=== PATIENT | male | born 1950 | race Caucasian/White ===

== ENCOUNTER 2019-05-31 18:31 | Emergency (ER) | payer BC, MEDICARE ==
[~2019-05-31] VITALS: Ht 175.3 cm; Wt 104.3 kg
[2019-05-31] MEDS ORDERED: BUSP10 PO (18:53)
[2019-05-31] MEDS ORDERED: CLON.5 PO (18:54)
== END 2019-05-31 20:00 | disposition home or self-care (01) ==
LOC: ER 18:31
DX: R07.89 Other chest pain (principal)
CPT/HCPCS: 71046; 84484; 93005; 93010; 99284-25

== ENCOUNTER → 2019-05-31 | Outpatient (CLI) | payer BC ==
[~2019-05-31] MED LIST: ASPI81CH PO; BUSP10 PO; CLON.5 PO; FISH1000 PO; KONSYL PO; LISI20 PO; LISI5 PO; METF500C PO; OMEP20ER PO; PRIM250 PO; PRIM50 PO; SERT100 PO; SIMV10 PO; TAMS.4ER PO
[2019-05-31 14:12] LABS: BASOPHILS ABSOLUTE AUTO 0.04 K/mm3 (0.00-0.23); BASOPHILS PERCENT AUTO 1 % (0-2); EOSINOPHILS ABSOLUTE AUTO 0.13 K/mm3 (0.00-0.68); EOSINOPHILS PERCENT AUTO 3 % (0-6); Hematocrit 34.2 % (37.0-53.0); Hemoglobin 12.2 g/dL (13.5-17.5); IMMATURE GRAN ABSOLUTE AUTO 0.01 K/mm3 (0.00-0.10); IMMATURE GRAN PERCENT AUTO 0 % (0-1); LYMPHOCYTES ABSOLUTE AUTO 0.14 K/mm3 (0.84-5.20); LYMPHOCYTES PERCENT AUTO 3 % (21-46); MONOCYTES ABSOLUTE AUTO 0.44 K/mm3 (0.16-1.47); MONOCYTES PERCENT AUTO 8 % (4-13); Mean Corpuscular HGB 33.6 pg (26.0-34.0); Mean Corpuscular HGB Conc 35.7 g/dL (31.5-36.5); Mean Corpuscular Volume 94 fL (80-100); Mean Platelet Volume 10.6 fL (9.1-12.4); NEUTROPHILS ABSOLUTE AUTO 4.54 K/mm3 (1.96-9.15); NEUTROPHILS PERCENT AUTO 86 % (41-73); Platelet Count 110 K/mm3 (150-400); RDW Coefficient Variation 12.2 % (11.7-14.2); Red Blood Cell Count 3.63 M/mm3 (4.30-5.90)
[2019-05-31 14:21] LABS: Alanine Aminotransfer (ALT/SGP 22 U/L (12-78); Albumin, Blood 3.5 g/dL (3.4-5.0); Albumin/Globulin Ratio 1.1 (0.8-1.8); Alk Phos 102 U/L (50-136); Anion Gap 6 mmol/L (6-16); Aspartate Aminotrans (AST/SGOT 21 U/L (12-37); Bilirubin, Total 0.5 mg/dL (0.1-1.0); Blood Urea Nitrogen 14 mg/dL (8-24); Bun/Creatinine Ratio 11.6 (12.0-20.0); CO2, Blood 26 mmol/L (21-32); Calcium, Blood 8.3 mg/dL (8.5-10.1); Chloride, Blood 111 mmol/L (98-108); Creatinine, Blood 1.21 mg/dL (0.60-1.20); Globulin, Blood 3.3 g/dL (2.2-4.0); Glomerular Filtration Rate >60 (60-); Glucose, Blood 97 mg/dL (70-99); Lactate Dehydrogenase (Ld),Bld 172 U/L (100-240); Potassium, Blood 3.7 mmol/L (3.5-5.5); Sodium, Blood 143 mmol/L (136-145); Total Protein, Blood 6.8 g/dL (6.4-8.2)
[2019-06-04 15:07] LABS: A/G RATIO 1.4 (0.7-1.7); ALBUMIN 3.6 g/dL (2.9-4.4); ALPHA-1-GLOBULIN 0.1 g/dL (0.0-0.4); ALPHA-2-GLOBULIN 0.5 g/dL (0.4-1.0); BETA GLOBULIN 0.9 g/dL (0.7-1.3); GAMMA GLOBULIN 1.2 g/dL (0.4-1.8); GLOBULIN, TOTAL 2.6 g/dL (2.2-3.9); IMMUNOGLOBULIN A, QN, SERUM 147 mg/dL (61-437); IMMUNOGLOBULIN G, QN, SERUM 674 mg/dL (700-1600); IMMUNOGLOBULIN M, QN, SERUM 734 mg/dL (20-172); M-SPIKE 0.8 g/dL (Not Observed); PROTEIN, TOTAL, SERUM 6.2 g/dL (6.0-8.5)
== END | disposition home or self-care (01) ==
LOC: LAB SHORT 13:27 → LAB 13:27
PROVIDERS: Internal Medicine Hematology & Oncology
DX: C88.0 Waldenstrom macroglobulinemia (principal)
CPT/HCPCS: 80053; 82784; 83615; 84165; 85025; 85810; 86334

== ENCOUNTER → 2019-07-05 | Outpatient (CLI) | payer BC ==
[2019-07-05 10:04] LABS: Source, Urine Clean Catch
[2019-07-05 11:19] LABS: Bilirubin, Urine Neg (Neg); Blood, Urine Neg (Neg); Glucose Qualitative, Urine Neg (Neg); Ketones, Urine Neg (Neg); Leukocyte Esterase, Urine Neg (Neg); Nitrite, Urine Neg (Neg); Protein, Urine 1+ (Neg); Urobilinogen, Urine NORM (Normal)
[2019-07-05 11:33] LABS: Appearance, Urine Clear (Clear); Color, Urine Yellow (P-Yellow)
== END | disposition home or self-care (01) ==
LOC: LAB 10:03 → LAB SHORT 10:03
PROVIDERS: Internal Medicine Hematology & Oncology
DX: C88.0 Waldenstrom macroglobulinemia (principal)
CPT/HCPCS: 81003

== ENCOUNTER 2022-02-24 16:07 | Emergency (ER) | payer BC ==
[~2022-02-24] VITALS: Ht 175.3 cm; Wt 91.6 kg
== END 2022-02-24 18:00 | disposition home or self-care (01) ==
LOC: ER 16:07
DX: R60.0 Localized edema (principal); C85.90 Non-Hodgkin lymphoma, unspecified, unspecified site; Z79.899 Other long term (current) drug therapy
CPT/HCPCS: 93970; 99284-25

== ENCOUNTER 2022-07-25 17:22 | Emergency (ER) | payer BC ==
[~2022-07-25] VITALS: Ht 175.3 cm; Wt 88.0 kg
[~2022-07-25 17:22] MED LIST changes: +IBUP600 PO; +LIDO700A20 TOP
[2022-07-25] MEDS ORDERED: Percocet 5-3251 EACH PO (18:31)
== END 2022-07-25 18:33 | disposition home or self-care (01) ==
LOC: ER 17:22
DX: B02.9 Zoster without complications (principal); E11.9 Type 2 diabetes mellitus without complications; Z79.899 Other long term (current) drug therapy
CPT/HCPCS: 99282

== ENCOUNTER 2023-10-19 01:06 | Emergency (ER) | payer BC ==
[~2023-10-19] VITALS: Ht 177.8 cm; Wt 86.2 kg
[~2023-10-19 01:06] MED LIST changes: +Percocet 5-3251 EACH PO
[2023-10-19 03:26] LABS: BASOPHILS ABSOLUTE AUTO 0.02 K/mm3 (0.00-0.23); BASOPHILS PERCENT AUTO 1 % (0-2); EOSINOPHILS ABSOLUTE AUTO 0.01 K/mm3 (0.00-0.68); EOSINOPHILS PERCENT AUTO 0 % (0-6); Hematocrit 41.5 % (37.0-53.0); Hemoglobin 14.9 g/dL (13.5-17.5); IMMATURE GRAN PERCENT AUTO 0 % (0-1); LYMPHOCYTES ABSOLUTE AUTO 0.19 K/mm3 (0.84-5.20); LYMPHOCYTES PERCENT AUTO 5 % (21-46); MONOCYTES ABSOLUTE AUTO 0.55 K/mm3 (0.16-1.47); MONOCYTES PERCENT AUTO 15 % (4-13); Mean Corpuscular HGB 34.7 pg (26.0-34.0); Mean Corpuscular HGB Conc 35.9 g/dL (31.5-36.5); Mean Corpuscular Volume 97 fL (80-100); Mean Platelet Volume 12.4 fL (9.1-12.4); NEUTROPHILS ABSOLUTE AUTO 2.81 K/mm3 (1.96-9.15); NEUTROPHILS PERCENT AUTO 78 % (41-73); Platelet Count 84 K/mm3 (150-400); RDW Coefficient Variation 12.7 % (11.7-14.2); RDW Standard Deviation 44.1 fL (35.1-46.3); Red Blood Cell Count 4.29 M/mm3 (4.30-5.90); White Blood Cell Count 3.58 K/mm3 (4.00-11.30)
[2023-10-19 03:41] LABS: D-Dimer, Quantitative 0.38 mg/L FEU (0.00-0.52); Prothrombin Time Results 10.5 Sec (9.7-11.5)
[2023-10-19 04:02] LABS: Source, Urine Voided
[2023-10-19 04:04] LABS: Albumin, Blood 3.6 g/dL (3.4-5.0); Albumin/Globulin Ratio 1.3 (0.8-1.8); Bilirubin, Total 0.6 mg/dL (0.1-1.0); Bun/Creatinine Ratio 11.4 (12.0-20.0); Calcium, Blood 8.2 mg/dL (8.5-10.1); Creatinine, Blood 1.14 mg/dL (0.60-1.20); Globulin, Blood 2.7 g/dL (2.2-4.0); Magnesium, Blood 1.9 mg/dL (1.6-2.4); Phosphorus, Blood 1.9 mg/dL (2.5-4.9); Potassium, Blood 3.3 mmol/L (3.5-5.5); Thyroid Stimulating Hormone 1.21 uIU/mL (0.360-4.800); Total Protein, Blood 6.3 g/dL (6.4-8.2)
[2023-10-19 04:07] LABS: Bilirubin, Urine Neg (Neg); Blood, Urine 4+ (Neg); Glucose Qualitative, Urine Neg (Neg); Ketones, Urine Neg (Neg); Leukocyte Esterase, Urine 1+ (Neg); Nitrite, Urine Neg (Neg); Protein, Urine 1+ (Neg); Urobilinogen, Urine NORM (Normal)
[2023-10-19 04:30] VITALS: BP 132/82
[2023-10-19 04:43] LABS: U Amphetamine Screen Not Detected; U Barbituate Screen DETECTED; U Benzodiazapine Screen Not Detected; U Buprenorphine Screen Not Detected; U Cannabinoids Screen Not Detected; U Cocaine Screen Not Detected; U Methadone Screen Not Detected; U Methamphetamine Screen Not Detected; U Opiates Screen Not Detected; U Oxycodone Screen Not Detected; U Phencyclidine Screen Not Detected
[2023-10-19 05:03] LABS: Appearance, Urine Hazy (Clear); Color, Urine Pale Yellow (P-Yellow)
[2023-10-19 05:05] LABS: Bacteria Mod /hpf; Red Blood Cells, Urine 50-100 /hpf (0-2); Squamous Epithelial Cells Not Seen /hpf (Few)
[2023-10-19] MEDS ORDERED: CEPH500 PO (06:02)
[2023-10-19] MEDS ORDERED: GABA300 PO (17:54)
[2023-10-19] MEDS ORDERED: ATOR40TA PO (17:56)
[2023-10-19] MEDS ORDERED: IMBRUVICA420 MG PO (18:56)
[2023-10-19] MEDS ORDERED: LATA.005SO BOTHEYES (18:57)
== END 2023-10-19 06:34 | disposition home or self-care (01) ==
LOC: ER 01:06
PROVIDERS: Emergency Medicine
DX: N39.0 Urinary tract infection, site not specified (principal); E83.39 Other disorders of phosphorus metabolism; E11.9 Type 2 diabetes mellitus without complications; G47.30 Sleep apnea, unspecified; Z79.899 Other long term (current) drug therapy; W18.30XA Fall on same level, unspecified, initial encounter
CPT/HCPCS: 71046; 80053; 81001; 83605; 83735; 84100; 84443; 84484; 85025; 85379; 85610; 85730; 87086; 87147; 93005; 93010; 96374; 99284-25; A9270; J0696; P9612

== ENCOUNTER 2023-10-19 14:15 | Observation (INO) | payer MEDICARE, BC ==
[~2023-10-19] VITALS: Ht 177.8 cm; Wt 82.9 kg
[~2023-10-19 14:15] MED LIST changes: +CEPH500 PO
[2023-10-19] MEDS ORDERED: GABA300 PO (17:54)
[2023-10-19] MEDS ORDERED: ATOR40TA PO (17:56)
[2023-10-19 18:21] VITALS: BP 102/89
[2023-10-19] MEDS ORDERED: IMBRUVICA420 MG PO (18:56)
[2023-10-19] MEDS ORDERED: LATA.005SO BOTHEYES (18:57)
[2023-10-19 21:01] VITALS: BP 145/92
[2023-10-20 02:51] VITALS: BP 160/91
[2023-10-20 05:12] LABS: BASOPHILS ABSOLUTE AUTO 0.01 K/mm3 (0.00-0.23); BASOPHILS PERCENT AUTO 0 % (0-2); EOSINOPHILS PERCENT AUTO 0 % (0-6); Hematocrit 41.5 % (37.0-53.0); Hemoglobin 14.9 g/dL (13.5-17.5); IMMATURE GRAN ABSOLUTE AUTO 0.01 K/mm3 (0.00-0.10); IMMATURE GRAN PERCENT AUTO 0 % (0-1); LYMPHOCYTES PERCENT AUTO 6 % (21-46); MONOCYTES ABSOLUTE AUTO 0.54 K/mm3 (0.16-1.47); MONOCYTES PERCENT AUTO 15 % (4-13); Mean Corpuscular HGB 34.4 pg (26.0-34.0); Mean Corpuscular HGB Conc 35.9 g/dL (31.5-36.5); Mean Corpuscular Volume 96 fL (80-100); Mean Platelet Volume 11.7 fL (9.1-12.4); NEUTROPHILS ABSOLUTE AUTO 2.88 K/mm3 (1.96-9.15); NEUTROPHILS PERCENT AUTO 79 % (41-73); Platelet Count 76 K/mm3 (150-400); RDW Coefficient Variation 12.6 % (11.7-14.2); RDW Standard Deviation 44.2 fL (35.1-46.3); Red Blood Cell Count 4.33 M/mm3 (4.30-5.90); White Blood Cell Count 3.64 K/mm3 (4.00-11.30)
[2023-10-20 05:31] LABS: Albumin, Blood 3.3 g/dL (3.4-5.0); Albumin/Globulin Ratio 1.1 (0.8-1.8); Bilirubin, Total 0.6 mg/dL (0.1-1.0); Bun/Creatinine Ratio 15.5 (12.0-20.0); Calcium, Blood 8.6 mg/dL (8.5-10.1); Creatinine, Blood 0.97 mg/dL (0.60-1.20); Globulin, Blood 2.9 g/dL (2.2-4.0); Magnesium, Blood 1.9 mg/dL (1.6-2.4); Phosphorus, Blood 2.6 mg/dL (2.5-4.9); Total Protein, Blood 6.2 g/dL (6.4-8.2)
--- NOTE | 2023-10-20 07:34 | NUR ---
SHIFT SUMMARY: DON IS A&OX2-3. VSS, NO ACUTE EVENTS OVERNIGHT, MAINTAINING SATS ORA. ATTENDS IN PLACE, PT ABLE TO USE THE URINAL AT TIMES, IMPULSIVE, ONE-PERSON ASSIST TO THE BSC. IV TO L AC PATENT. TOLERATING PO INTAKE WELL. PT DID HAVE MULTIPLE BOWEL MOVEMENTS OVERNIGHT, DIARRHEA NOTED. PT COUGHING UP PINK TINGED SPUTUM, CALLED HOSPITALIST AND OBTAINED ORDER FOR SPUTUM CULTURE. HE IS LYING IN BED WITH THE CALL LIGHT IN REACH. REPORT WAS GIVEN TO PHOTOGRAPH EDITOR RN.
[2023-10-20 08:53] VITALS: BP 138/101
[2023-10-20 14:41] LABS: Albumin, Blood 3.3 g/dL (3.4-5.0); Anion Gap 4 mmol/L (6-16); Blood Urea Nitrogen 17 mg/dL (8-24); Bun/Creatinine Ratio 15.5 (12.0-20.0); CO2, Blood 29 mmol/L (21-32); Calcium, Blood 8.3 mg/dL (8.5-10.1); Chloride, Blood 108 mmol/L (98-108); Glomerular Filtration Rate 72 (60-); Glucose, Blood 176 mg/dL (70-99); Phosphorus, Blood 2.2 mg/dL (2.5-4.9); Potassium, Blood 3.5 mmol/L (3.5-5.5); Sodium, Blood 141 mmol/L (136-145)
--- NOTE | 2023-10-20 16:20 | NUR ---
SHIFT SUMMARY PATIENT IS ALERT AND ORIENTED X2. [facility] BY STAFF. PATIENT HAS BEEN SETTING OFF BED ALARM FREQUENTLY. PATIENT HAS HAD POTASSIUM AND MAGNESIUM INFUSED ORDERED. PATIENT HAS HAD NO OTHER ACUTE EVENTS THIS SHIFT. VITAL SIGNS REVIEWED. PATIENT HAS REPORTED NO SOB, PAIN, NAUSEA, OR VOMITTING THIS SHIFT. BED IN LOCKED AND LOWEST POSITION. CALL LIGHT IN PLACE. REPORT GIVEN TO ARIEL GERMAN.
[2023-10-20 16:50] VITALS: BP 175/98
[2023-10-20 17:14] VITALS: BP 151/96
[2023-10-20 20:00] VITALS: BP 147/90
[2023-10-20 20:38] LABS: Hematocrit 44.4 % (37.0-53.0); Hemoglobin 15.3 g/dL (13.5-17.5); Mean Corpuscular HGB 34.2 pg (26.0-34.0); Mean Corpuscular HGB Conc 34.5 g/dL (31.5-36.5); Mean Corpuscular Volume 99 fL (80-100); Platelet Count 86 K/mm3 (150-400); RDW Coefficient Variation 12.9 % (11.7-14.2); RDW Standard Deviation 47.1 fL (35.1-46.3); Red Blood Cell Count 4.47 M/mm3 (4.30-5.90)
[2023-10-20 21:37] LABS: BAND PERCENT MAN 9 % (0-8); BASOPHILS PERCENT MAN 0 % (0-2); EOSINOPHILS ABSOLUTE MAN 0.03 K/mm3 (0.00-0.68); EOSINOPHILS PERCENT MAN 1 % (0-6); LYMPHOCYTES ABSOLUTE MAN 0.33 K/mm3 (0.84-5.20); LYMPHOCYTES PERCENT MAN 9 % (21-46); MONOCYTES ABSOLUTE MAN 0.33 K/mm3 (0.16-1.47); MONOCYTES PERCENT MAN 9 % (4-13); NEUTROPHILS ABSOLUTE MAN 2.99 K/mm3 (1.96-9.15); SEG NEUTROPHILS PERCENT MAN 72 % (41-73); TOTAL CELLS COUNTED 100
--- NOTE | 2023-10-21 04:06 | NUR ---
SHIFT SUMMARY PT ALERT, ORIENTED TO SELF AND PERSON. CONFUSED AND IMPULSIVE AT TIMES WHEN NEEDING TO USE THE BATHROOM. 1P ASSIST WITH FWW & GB WHEN AMBULATING TO RESTROOM. POST VOID BLADDER SCAN 152 ML. PT STATES AT TIMES HE EXPERIENCES BURNING WITH URINATION. CURRENTLY RECEIVING ABX FOR UTI. TELEMETRY: SR, BBB @ 85. BED ALARM IN PLACE. BED KEPT IN LOWEST POSITION WITH CALL LIGHT WITHIN REACH. WILL CONTINUE TO MONITOR.
[2023-10-21 04:20] VITALS: BP 144/98
--- NOTE | 2023-10-21 06:24 | NUR ---
PT IMPULSIVE AND QUICK TO GET OUT OF BED. REORIENTED BUT FORGETS WITHIN A FEW MINUTES. PT HAS BEEN PULLING AT IV AND HAS GOTTEN OOB NUMEROUS TIMES THIS AM. PT KEEPS PULLING OFF HIS TELE. TELE HAS CALLED TO REPORT THE PT COMPLETLY OFF TELE 3 TIMES. WILL NOTIFY
[2023-10-21 06:54] LABS: Albumin, Blood 3.5 g/dL (3.4-5.0); Anion Gap 7 mmol/L (6-16); Blood Urea Nitrogen 16 mg/dL (8-24); Bun/Creatinine Ratio 15.2 (12.0-20.0); CO2, Blood 24 mmol/L (21-32); Calcium, Blood 8.6 mg/dL (8.5-10.1); Chloride, Blood 110 mmol/L (98-108); Creatinine, Blood 1.05 mg/dL (0.60-1.20); Glomerular Filtration Rate 76 (60-); Glucose, Blood 122 mg/dL (70-99); Magnesium, Blood 2.1 mg/dL (1.6-2.4); Phosphorus, Blood 2.9 mg/dL (2.5-4.9); Potassium, Blood 3.5 mmol/L (3.5-5.5); Sodium, Blood 141 mmol/L (136-145)
[2023-10-21 07:39] VITALS: BP 147/95
[2023-10-21] MEDS ORDERED: AMOX875 PO (14:33)
--- NOTE | 2023-10-21 15:00 | NUR ---
DISCHARGE NOTE MR SALES HAS BEEN CONFUSED AND IMPULSIVE TODAY. WEARING DENICE RESTRAINT. WHEN IT WAS REMOVED TO AMBULATE HIM IN THE HALLS WITH PT HE WOULD QUICKLY LEAN OVER TO THE FLOOR AND FORGET TO STAND UPRIGHT. HE PULLED AT RESTRAINTS, REMOVED TELEMETRY (UNTIL IT WAS DISCONTINUED) AND WOULD FORGET TO USE CALL LIGHT OR ASK FOR HELP BEFORE TRYING TO GET UP OUT OF BED OR CHAIR. BED AND CHAIR ALARMS USED. RESTRAINTS REMOVED AT 1445 PRIOR TO DISCHARGE WITH AND GRANDDAUGHTER. HIS HAS GLAUCOMA AND DOES NOT READ. PT AND FAMILY VERBALISED UNDERSTANDING OF WRITTEN AND VERBAL DISCHARGE INSTRUCTIONS. DISCHARGED AT 1505 VIA WHEELCHAIR. PIV REMOVED BY BICYCLE REPAIRER PRIOR TO DC.
== END 2023-10-21 15:03 | disposition home health service (06) ==
LOC: ER 14:15 → MEDS 14:16
PROVIDERS: ADMIT Family Medicine
DX: N39.0 Urinary tract infection, site not specified (principal); I10 Essential (primary) hypertension; N40.0 Benign prostatic hyperplasia without lower urinary tract symptoms; E11.9 Type 2 diabetes mellitus without complications; G25.81 Restless legs syndrome; G47.33 Obstructive sleep apnea (adult) (pediatric); K21.9 Gastro-esophageal reflux disease without esophagitis; W18.30XA Fall on same level, unspecified, initial encounter; F32.9 Major depressive disorder, single episode, unspecified; G25.0 Essential tremor; E87.6 Hypokalemia; C88.0 Waldenstrom macroglobulinemia; Z79.899 Other long term (current) drug therapy; Z99.89 Dependence on other enabling machines and devices
CPT/HCPCS: 36415; 70450; 80053; 80069; 83735; 84100; 85025; 87070; 87205; 92610; 96365; 96366; 96367; 96372; 96376; 97110; 97116; 97162; 97165; 97530; 97535; 99285-25; A9270; G0378; J0696; J1650; J3475; J3480; J7040; J7050

== ENCOUNTER 2023-11-02 17:28 | Inpatient (IN) | payer MEDICARE, BC ==
[~2023-11-02] VITALS: Ht 177.8 cm; Wt 77.2 kg
[~2023-11-02 17:28] MED LIST changes: +AMOX875 PO; +ATOR40TA PO; +GABA300 PO; +IMBRUVICA420 MG PO; +LATA.005SO BOTHEYES
[2023-11-02 18:26] LABS: BASOPHILS ABSOLUTE AUTO 0.02 K/mm3 (0.00-0.23); BASOPHILS PERCENT AUTO 1 % (0-2); EOSINOPHILS PERCENT AUTO 0 % (0-6); Hematocrit 44.3 % (37.0-53.0); Hemoglobin 16.4 g/dL (13.5-17.5); IMMATURE GRAN PERCENT AUTO 0 % (0-1); LYMPHOCYTES ABSOLUTE AUTO 0.41 K/mm3 (0.84-5.20); LYMPHOCYTES PERCENT AUTO 11 % (21-46); MONOCYTES PERCENT AUTO 10 % (4-13); Mean Corpuscular HGB 33.3 pg (26.0-34.0); Mean Corpuscular Volume 90 fL (80-100); Mean Platelet Volume 11.6 fL (9.1-12.4); NEUTROPHILS PERCENT AUTO 78 % (41-73); Platelet Count 140 K/mm3 (150-400); RDW Standard Deviation 39.5 fL (35.1-46.3); Red Blood Cell Count 4.92 M/mm3 (4.30-5.90); White Blood Cell Count 3.83 K/mm3 (4.00-11.30)
[2023-11-02 18:41] LABS: Base Excess Venous -1.7 mmol/L; Bicarbonate Venous 24.6 mmol/L (24.0-30.0); PCO2 Venous 26.1 mmHg (38-42); pH Blood Venous 7.52 (7.34-7.37)
[2023-11-02 19:05] LABS: Influenza A, PCR NEGATIVE (NEGATIVE); Influenza B, PCR NEGATIVE (NEGATIVE); Resp Syncytial Virus, PCR NEGATIVE (NEGATIVE)
[2023-11-02 19:06] LABS: SARS-Cov-2 (COVID-19) PCR, MMC POSITIVE (NEGATIVE)
[2023-11-02 19:07] LABS: Magnesium, Blood 1.9 mg/dL (1.6-2.4)
[2023-11-02 19:10] LABS: Thyroid Stimulating Hormone 1.18 uIU/mL (0.360-4.800)
[2023-11-02 19:16] LABS: Albumin, Blood 3.2 g/dL (3.4-5.0); Bilirubin, Total 1.1 mg/dL (0.1-1.0); Bun/Creatinine Ratio 20.5 (12.0-20.0); Calcium, Blood 8.5 mg/dL (8.5-10.1); Creatinine, Blood 0.88 mg/dL (0.60-1.20); Globulin, Blood 3.2 g/dL (2.2-4.0); Potassium, Blood 2.6 mmol/L (3.5-5.5); Total Protein, Blood 6.4 g/dL (6.4-8.2)
[2023-11-02 19:28] LABS: Source, Urine Straight Cath
[2023-11-02 19:34] LABS: Appearance, Urine Clear (Clear); Bilirubin, Urine Neg (Neg); Blood, Urine 2+ (Neg); Color, Urine Yellow (P-Yellow); Glucose Qualitative, Urine Neg (Neg); Ketones, Urine 3+ (Neg); Leukocyte Esterase, Urine Neg (Neg); Nitrite, Urine Neg (Neg); Protein, Urine 2+ (Neg); Specific Gravity, Urine 1.015 (1.003-1.022); Urobilinogen, Urine NORM (Normal)
[2023-11-02 19:41] LABS: Bacteria Few /hpf; Squamous Epithelial Cells Rare /hpf (Few); White Blood Cells, Urine 0-2 /hpf (0-5)
[2023-11-02] MEDS ORDERED: OLANZAPINE1024 PO (19:44)
[2023-11-02] MEDS ORDERED: [UNRECOGNIZED DRUG - CODE] PO (19:45)
[2023-11-02] MEDS ORDERED: ATOR40TA PO (19:46)
[2023-11-03 00:02] VITALS: BP 158/89
--- NOTE | 2023-11-03 00:15 | NUR ---
ADMIT NOTE LATE ENTRY PT ARRIVED TO UNIT BY ED JORDAN AT 2355. SLID FROM [facility] TO HOSPITAL BED BY STAFF. BELONGINGS AT [facility]. EDUCATED ON FIRE SAFETY AND PREVENTION. ORIENTED TO ROOM AND CALL LIGHT. RECEIVED REPORT FROM [facility]ARR ED RN. BED IN LOWEST POSITION WITH CALL LIGHT WITHIN REACH. MAGNESIUM INFUISING FROM ED. BAG 2 OF POTASSIUM BROUGHT UP WITH PT. WILL START NOW.
--- NOTE | 2023-11-03 04:00 | NUR ---
SHIFT SUMMARY PT ADMITTED TO UNIT THIS SHIFT. PT IS ALERT TO SELF AND PLACE. PT IS CONTINENT/INCONTINENT OF BLADDER AND BOWEL. URINAL ASSISTANCE REQUIRED. PT NOT OOB THIS SHIFT. PT HAS REDNESS TO BUTT, PICS IN CHART. TELEMETRY: SR @ 92. DENIES ANY CP OR PRESSURE. 1 BAG POTASSIUM GIVEN UPON ARRIVAL TO FLOOR. CURRENTLY INFUISING NS @ 125. ENHANCED ISOLATION PRECAUTIONS DUE TO COVID POSITIVE. PT IS COOPERATIVE WITH CARE PROVIDED. BED KEPT IN LOWEST POSITION WITH CALL LIGHT IN REACH. BED ALRAM ON FOR SAFETY.
[2023-11-03 04:47] VITALS: BP 144/90
[2023-11-03 06:06] LABS: Bun/Creatinine Ratio 18.4 (12.0-20.0); Calcium, Blood 8.3 mg/dL (8.5-10.1); Creatinine, Blood 0.87 mg/dL (0.60-1.20); Potassium, Blood 3.5 mmol/L (3.5-5.5)
[2023-11-03 07:41] VITALS: BP 129/92
[2023-11-03 15:35] VITALS: BP 104/68
--- NOTE | 2023-11-03 18:40 | NUR ---
SUMMARY- PT A/O TO SELF, FAMILY AND THAT HE IS IN THE HOSPITAL. NEURO PT HAD EXPRESSIVE APHASIA, DELAY SPEECH WITH 2-3 WORD PHRASES. FOLOWS COMMANDS TO BRAND MANAGER, BUT UNABLE TO MAKE A FIST WITH L HAND, CIAIO COUNTER MOLDER BETWEEN THUMB. FACE IS SYMETRICAL. PT HAS OCC STRONG PRODUCTIVE COUGH. CRACKLES IN THE BASES. ROOM AIR, RESP EVEN UNLABORED. PT REFUSING ALL SOLID FOODS. TOLERATING CLEARS. STATES HE HAS NO APPETITE. FAMILY STATES HE HAS HAD LITTLE APPETITE AT HOME SINCE LAST DISCHARGE. PT UP IN CHAIR FOR ABOUT 3 HOURS TODAY. PT NAPPED ON/OFF ALL DAY. DAGHTER AND GRANDDAUGHTER VISITED IN THE PM. CALLED FROM HOME, BUT CANT VISIT DUE TO COVID. PT INCONT URINE ALL OF SHIFT. WILL REPORT TO KRISTIN RN
[2023-11-03 21:48] VITALS: BP 146/78
--- NOTE | 2023-11-03 23:05 | NUR ---
PT WITH TEMPERATURE OF 103.2. GAVE TYLENOL PER EMAR AND REASSESSED PT. TEMPERATURE NOW 99.8. PT DENIES ANY PAIN. SKIN IS FLUSHED. POSITIE FOR COVID. WILL CONTIUE TO MONITOR.
[2023-11-04] VITALS (73 sets, daily range): BP systolic 69–165; BP diastolic 41–119
--- NOTE | 2023-11-04 00:49 | NUR ---
PHYSICIAN NOTIFIED REASSESSED PT FEVER AND VITALS. FEVER TRENDING UPWARD. REPORTED VITALS TO DR REYES. TO PLACE ORDERS. WILL CONTINUE TO MONITOR.
--- NOTE | 2023-11-04 03:41 | NUR ---
doctor notified called dr dinh to report low bp. placed orders for 500 bolus.
--- NOTE | 2023-11-04 05:21 | NUR ---
DOCTOR ORDERED 500 BOLOS OF NS AFTER i NOTIFIED HIM OF BLOOD PRESSURE OF 88/57. REASSESSED PT AFTER BOLUS AND FOUND TO BE NOT RESPONSIVE AND BP AT 69/41. O2 SAT AT 83. CALLED RAPID RESPONSE. PT TAKEN TO ICU. REPORT GIVEN TO BETTYE. PT BELONGINGS AT BEDSIDE. GAVE HOME MEDICATION TO ANJEL GUTIERREZ CLINICAL DIALYSIS EQUIPMENT TECHNICIAN. SHE WILL ALSO CALL TO NOTIFY FAMILY.
[2023-11-04 05:22] LABS: PCO2 Arterial 38.2 mmHg (35-45); PO2 Arterial 107 mmHg (80-100); pH Blood Arterial 7.34 (7.35-7.45)
[2023-11-04 05:48] LABS: Hematocrit 34.2 % (37.0-53.0); Hemoglobin 12.2 g/dL (13.5-17.5); Mean Corpuscular HGB 33.8 pg (26.0-34.0); Mean Corpuscular HGB Conc 35.7 g/dL (31.5-36.5); Mean Platelet Volume 11.3 fL (9.1-12.4); Platelet Count 89 K/mm3 (150-400); RDW Standard Deviation 41.9 fL (35.1-46.3); Red Blood Cell Count 3.61 M/mm3 (4.30-5.90); White Blood Cell Count 3.81 K/mm3 (4.00-11.30)
--- NOTE | 2023-11-04 05:56 | NUR ---
PT CHART AND HOME MEDICATION TAKEN TO ICU. CALLED AND SPOKE WITH PT'S SPOUSE, LACHELLE, AND UPDATED HER OF HER 'S STATUS AND THAT HE WAS MOVED TO THE ICU. LACHELLE IS TEARFUL, STATES SHE'LL BE IN TO SEE THE PT EARLY THIS MORNING.
[2023-11-04 05:59] LABS: Mean Corpuscular Volume 95 fL (80-100)
[2023-11-04 06:09] LABS: Albumin, Blood 2.3 g/dL (3.4-5.0); Anion Gap 8 mmol/L (6-16); Blood Urea Nitrogen 16 mg/dL (8-24); Bun/Creatinine Ratio 13.4 (12.0-20.0); CO2, Blood 23 mmol/L (21-32); Calcium, Blood 7.5 mg/dL (8.5-10.1); Chloride, Blood 113 mmol/L (98-108); Creatinine, Blood 1.19 mg/dL (0.60-1.20); Glomerular Filtration Rate 65 (60-); Glucose, Blood 103 mg/dL (70-99); Phosphorus, Blood 2.3 mg/dL (2.5-4.9); Potassium, Blood 2.6 mmol/L (3.5-5.5); Sodium, Blood 144 mmol/L (136-145)
[2023-11-04 06:37] LABS: Magnesium, Blood 1.9 mg/dL (1.6-2.4)
[2023-11-04 06:57] LABS: BAND PERCENT MAN 26 % (0-8); BASOPHILS PERCENT MAN 0 % (0-2); EOSINOPHILS PERCENT MAN 0 % (0-6); LYMPHOCYTES ABSOLUTE MAN 0.03 K/mm3 (0.84-5.20); LYMPHOCYTES PERCENT MAN 1 % (21-46); MONOCYTES ABSOLUTE MAN 0.11 K/mm3 (0.16-1.47); MONOCYTES PERCENT MAN 3 % (4-13); NEUTROPHILS ABSOLUTE MAN 3.65 K/mm3 (1.96-9.15); SEG NEUTROPHILS PERCENT MAN 70 % (41-73); TOTAL CELLS COUNTED 100
--- NOTE | 2023-11-04 07:21 | NUR ---
SHIFT SUMMARY PATIENT WAS A RAPID RESPONSE ON MEDICAL FLOOR, TRANSFERED TO ICU 4 AT 0505. PATIENT REPSONDS TO PAIN, ABLE TO OPEN EYES AND STATE HE IS IN THE HOSPITAL THEN BECOMES UNCONSCIOUS AGAIN. 02 SATS 93% ON 5L VIA NC, SMALL AMOUNT OF THICK WHITE SECRETIONS. APNIEC PERIODS. HR SR 80s, BP HYPOTENSIVE ON TRANSFER, APPROX 1.5L BOLUS GIVEN AND LOW DOSE LEVOPHED STARTED. ATTENDS IN PLACE, PATIENT INCONTINENT OF BLADDER. REDNESS ON BUTTOCKS, PHOTO IN CHART. POWERGLIDE STARTED. , DAUGHTER AND FRIEND AT BEDSIDE, DR. BRUNO TALKED WITH FAMILY.
--- NOTE | 2023-11-04 09:48 | NUR ---
[place] of Care: Care assumed at 0700hr. Patient sleeping, but rouses to verbal stimuli and also occasionally rouses spontaneously, oriented to self. Patient very drowsy when awake, having difficulty remaining alert and awake. VSS, levophed gtt on 2mcg/min at shift change, then placed on stand-by at approx 0745hr, BP remains stable. SpO2- 96-995 on 6L/NC, no s/s or respiratory distress. x1 peripheral IV and x1 PG patent and intact. Incontinent of urine this morning. Receiving Kcl replacement per EMAR. Will continue to monitor.
[2023-11-04 13:02] LABS: Hematocrit 36.8 % (37.0-53.0); Hemoglobin 13.2 g/dL (13.5-17.5); Mean Corpuscular HGB 33.3 pg (26.0-34.0); Mean Corpuscular HGB Conc 35.9 g/dL (31.5-36.5); Mean Corpuscular Volume 93 fL (80-100); Mean Platelet Volume 11.9 fL (9.1-12.4); Platelet Count 92 K/mm3 (150-400); RDW Coefficient Variation 12.1 % (11.7-14.2); RDW Standard Deviation 41.7 fL (35.1-46.3); Red Blood Cell Count 3.96 M/mm3 (4.30-5.90); White Blood Cell Count 2.88 K/mm3 (4.00-11.30)
[2023-11-04 15:58] LABS: Source, Urine Foley catheter
[2023-11-04 16:13] LABS: Appearance, Urine Clear (Clear); Bilirubin, Urine Neg (Neg); Blood, Urine 2+ (Neg); Color, Urine Yellow (P-Yellow); Glucose Qualitative, Urine Neg (Neg); Ketones, Urine 2+ (Neg); Leukocyte Esterase, Urine Neg (Neg); Nitrite, Urine Neg (Neg); Protein, Urine 2+ (Neg); Specific Gravity, Urine 1.015 (1.003-1.022); Urobilinogen, Urine NORM (Normal)
[2023-11-04 16:26] LABS: Albumin, Blood 2.3 g/dL (3.4-5.0); Anion Gap 5 mmol/L (6-16); Blood Urea Nitrogen 13 mg/dL (8-24); Bun/Creatinine Ratio 13.4 (12.0-20.0); CO2, Blood 23 mmol/L (21-32); Chloride, Blood 114 mmol/L (98-108); Creatinine, Blood 0.97 mg/dL (0.60-1.20); Glomerular Filtration Rate 83 (60-); Glucose, Blood 75 mg/dL (70-99); Phosphorus, Blood 2.3 mg/dL (2.5-4.9); Potassium, Blood 3.7 mmol/L (3.5-5.5); Sodium, Blood 142 mmol/L (136-145)
[2023-11-04 16:36] LABS: Bacteria Many /hpf; Renal Epithelial Rare /hpf (0-Rare); Squamous Epithelial Cells Rare /hpf (Few)
--- NOTE | 2023-11-04 17:47 | NUR ---
Shift Summary: No significant changes throughout shift. Patient's neuro status slightly improved. Only sleeping when not roused by staff but able to stay awake and follow commands throughout cares. Remains oriented only to self, and place. VSS remain stable, levophed remained off since 0745hr. No s/s of respiratory distress, spO2 wnl, now on 3L/NC. Harrison cath placed this afternoon per Dr. English for accurate urine output. Temp max of 102.5, prn tylenol and ice packs effective to manage fever. Repeat lab values this afternoon, showed improved ok K+ to 3.7. Received orders per Dr. English for LR at 50ml/hr and Kphos 15mmol x1. Family at bedside throughout most of shift. Will continue to monitor until report to NOC shift RN.
--- NOTE | 2023-11-04 21:21 | NUR ---
ASSUMED CARE AT 1900 PATIENT IS ALERT AND ORIENTED X 2-3, KNOWS SELF AND PLACE, UNABLE TO STATE DATE, AND FORGETFUL. 02 SATS 95% ON 2L VIA NC, PATIENT DENIES SOB, LS CLEAR TO DIM. HR SR 92, BP STABLE, DENIES CP/PRESSURE. TEMP MEJIA PATENT AND DRAINING [place] URINE WITH SEDIMENT TO GRAVITY. TEMP 100.4, MEDICATED WITH TYLENOL PER EMAR. REPOSITIONED. PATIENT TOLERATED PO INTAKE WELL. CALL LIGHT IN REACH
[2023-11-05] VITALS (15 sets, daily range): BP systolic 95–130; BP diastolic 65–95
[2023-11-05 03:52] LABS: Mean Corpuscular HGB 33.5 pg (26.0-34.0); Mean Corpuscular HGB Conc 36.1 g/dL (31.5-36.5); Mean Corpuscular Volume 93 fL (80-100); Mean Platelet Volume 11.3 fL (9.1-12.4); Platelet Count 90 K/mm3 (150-400); RDW Coefficient Variation 12.4 % (11.7-14.2); RDW Standard Deviation 42.3 fL (35.1-46.3); Red Blood Cell Count 3.88 M/mm3 (4.30-5.90); White Blood Cell Count 4.53 K/mm3 (4.00-11.30)
[2023-11-05 04:13] LABS: BAND PERCENT MAN 27 % (0-8); BASOPHILS PERCENT MAN 0 % (0-2); EOSINOPHILS PERCENT MAN 0 % (0-6); LYMPHOCYTES ABSOLUTE MAN 0.04 K/mm3 (0.84-5.20); LYMPHOCYTES PERCENT MAN 1 % (21-46); MONOCYTES ABSOLUTE MAN 0.13 K/mm3 (0.16-1.47); MONOCYTES PERCENT MAN 3 % (4-13); NEUTROPHILS ABSOLUTE MAN 4.34 K/mm3 (1.96-9.15); SEG NEUTROPHILS PERCENT MAN 69 % (41-73); TOTAL CELLS COUNTED 100
[2023-11-05 04:16] LABS: Albumin/Globulin Ratio 0.7 (0.8-1.8); Bilirubin, Total 0.8 mg/dL (0.1-1.0); Calcium, Blood 7.9 mg/dL (8.5-10.1); Globulin, Blood 2.8 g/dL (2.2-4.0); Magnesium, Blood 1.8 mg/dL (1.6-2.4); Phosphorus, Blood 3.1 mg/dL (2.5-4.9); Potassium, Blood 3.7 mmol/L (3.5-5.5); Total Protein, Blood 4.8 g/dL (6.4-8.2)
--- NOTE | 2023-11-05 06:08 | NUR ---
SHIFT SUMMARY PATIENT REMAINS ALERT AND ORIENTED X 2-3. 02 SATS 95% ON RA, HX FAROOQ AND DOES DESAT TO MID 80s BRIEFLY WHILE SLEEPING. DENIES SOB. HR SR 80s, BP STABLE THROUGH THE NIGHT. TEMP MEJIA PATENT AND DRAINING TO GRAVITY. TMAX 100.4 THIS SHIFT, MEDICATED WITH TYLENOL, TEMP CURRENTLY 98.7. REPOSITIONED Q2 HOURS. CALL LIGHT IN REACH
--- NOTE | 2023-11-05 12:46 | NUR ---
REASSESSMENT PT HAS BEEN MAINTAING SPO2 ABOVE 90% ON RA THROUGHOUT THE MORNING. HIS LUNGS ARE CLEAR, DIM IN THE BASES. HE HAS A CONGESTED SOUNDING, STRONG COUGH, BUT NOT BRINGING ANY SPUTUM UP TO SEND FOR CULTURE. HE IS ALERT, ORIENTED ONLY TO HIMSELF. HE IS VERY GOOD AT TRYING TO DIVERT FROM ORIENTATION QUESTIONS TO HIDE THAT HE DOESN'T KNOW THE ANSWER. HE HAS BEEN COOPERATIVE. HE IS EATING WITHOUT DIFFICULTY. HE GOT UP TO THE CHAIR FOR LUNCH WITH 1 PERSON [address] A WALKER. DR. BRUNO GAVE OK FOR PT TO BE MED STATUS, NO TELE. ROBERTO PULLIAM'D STRICT I AND O NO LONGER NEEDED. PT'S SON HAS BEEN IN THIS MORNING TO VISIT AND WAS UPDATED BY NURSING STAFF.
--- NOTE | 2023-11-05 16:04 | NUR ---
SHIFT SUMMARY PT HAS MAINTAINED SPO2 ABOVE 90% ON RA WHILE AWAKE. WHEN HE WAS SLEEPING HE STARTED HAVING SOME SLEEP APNEA AND DROPPING HIS SATURATIONS TO THE 70S, BUT QUICKLY RETURNING TO ABOVE 90%. PLACED 2L/NC ON PT AND HE ONLY WOULD DROP TO THE UPPER 80S BEFORE RETURNING TO THE MID 90S. LUNGS REMAIN CLEAR, STRONG COUGH. SR IN THE 80S AT REST, BP STABLE. POOR APPETITE, BUT MAKING ATTEMPTS TO EAT HIS MEAL TRAYS. DRINKS GOOD AMOUNTS OF WATER. PT'S FAMILY HAS BEEN IN TODAY AND HAS BEEN UPDATED. PT TO TRANSFER TO 350 THIS EVENING. PT AND HIS FAMILY AWARE.
--- NOTE | 2023-11-05 16:48 | NUR ---
PT TRANSFERRED TO [facility], RM 350, VIA WC WITH RN. REPORT GIVEN TO MAXI ALANIZ. PT TOLERATED TRANSFER WELL.
--- NOTE | 2023-11-05 17:04 | NUR ---
TRANSFER SUMMARY: PT TX TO ROOM 350. REPORT FROM HOG COOLER. PT ARRIVED TO ROOM VIA WC ON RA, A/O X 1, ABLE TO SELF TX TO CHAIR. PLACED ON CHAIR ALARM. PT ABLE TO ANSWER QUESTIONS. ORIENTED TO ROOM AND CALL LIGHT. PT DENIES NEEDS OR CONCERNS AT THIS TIME/ PT GIVEN ICE WATER AND PLACED ON CONTINUOUS BIOX. SATS ARE 93% ON RA. HR 95.
--- NOTE | 2023-11-05 18:07 | NUR ---
SHIFT SUMMARY: PT A/O X 1, ONE ASSIST PLEASANT AND COOPERATIVE. PT UP TO CHAIR SINCE ARRIVAL. WATCHING TV. SATS OBSERVEED TO BE 92-95% ON CONTINUOUS BIOX WHEN PT AT REST ON RA. PT HAD NO CONCERNS OR COMPLAINTS SINCE ARRIVAL.
[2023-11-06 03:38] VITALS: BP 132/76
--- NOTE | 2023-11-06 04:40 | NUR ---
SHIFT SUMMARY IVANA WAS ALERT AND ORIENTED X3 AT START OF SHIFT. PT ON CONT BIOX, SATTING 96% @ 2L O2 VIA NC. PT HAS SLEEP APNEA AND WILL OCCASIONALLY DESAT INTO LOW 80S BEFORE WAKING UP AND BOUNCING BACK TO 90'S, HE REFUSES A PAP MACHINE. PT DENIES FEELING SOB AT THIS TIME. NO C/P/PRESSURE, NO ACUTE EVENTS, AND NO NOTED CHANGES IN CONDITION TONIGHT. PT RESTING IN BED AT A LOW POSITION WITH CALL LIGHT IN REACH.
[2023-11-06 07:56] VITALS: BP 109/67
[2023-11-06 09:20] LABS: Hematocrit 36.8 % (37.0-53.0); Hemoglobin 13.6 g/dL (13.5-17.5); Mean Corpuscular HGB 33.7 pg (26.0-34.0); Mean Corpuscular Volume 91 fL (80-100); Mean Platelet Volume 11.8 fL (9.1-12.4); Platelet Count 148 K/mm3 (150-400); RDW Coefficient Variation 12.7 % (11.7-14.2); RDW Standard Deviation 42.3 fL (35.1-46.3); Red Blood Cell Count 4.03 M/mm3 (4.30-5.90); White Blood Cell Count 8.14 K/mm3 (4.00-11.30)
[2023-11-06 09:44] LABS: Anion Gap 7 mmol/L (6-16); Blood Urea Nitrogen 26 mg/dL (8-24); Bun/Creatinine Ratio 28.4 (12.0-20.0); CO2, Blood 25 mmol/L (21-32); Calcium, Blood 8.1 mg/dL (8.5-10.1); Chloride, Blood 109 mmol/L (98-108); Creatinine, Blood 0.92 mg/dL (0.60-1.20); Glomerular Filtration Rate 89 (60-); Glucose, Blood 174 mg/dL (70-99); Phosphorus, Blood 1.9 mg/dL (2.5-4.9); Potassium, Blood 3.1 mmol/L (3.5-5.5); Sodium, Blood 141 mmol/L (136-145); Vancomycin, Trough 9.9 ug/mL (5.0-10.0)
[2023-11-06 10:29] LABS: BAND PERCENT MAN 13 % (0-8); BASOPHILS PERCENT MAN 0 % (0-2); EOSINOPHILS PERCENT MAN 0 % (0-6); LYMPHOCYTES % ATYPICAL MANUAL 1 % (0-0); LYMPHOCYTES PERCENT MAN 4 % (21-46); MONOCYTES ABSOLUTE MAN 0.08 K/mm3 (0.16-1.47); MONOCYTES PERCENT MAN 1 % (4-13); NEUTROPHILS ABSOLUTE MAN 7.65 K/mm3 (1.96-9.15); SEG NEUTROPHILS PERCENT MAN 81 % (41-73); TOTAL CELLS COUNTED 100
[2023-11-06 16:23] VITALS: BP 107/75
[2023-11-06 19:22] VITALS: BP 116/74
--- NOTE | 2023-11-06 19:48 | NUR ---
SHIFT SUMMARY: PT A/O X 2, ONE ASSIST. PLEASANT AND COOPERATIVE. PT ON RA WHILE AWAKE, NON PRODUCTIVE COUGH. PT HAS DIARRHEA. TOLERATED THE BANANA FLAKES TODAY. NO OTHER COMPLAINTS FROM PT.
[2023-11-07 04:15] VITALS: BP 135/97
--- NOTE | 2023-11-07 06:06 | NUR ---
SHIFT SUMMARY PT A&O TO SELF AND PLACE. PT SLEPT MOST OF SHIFT WITH NO COMPLAINTS. PT O2 SATURATION DIPPED UNDER 90% MULTIPLE TIMES THROUGHOUT THE NIGHT, BUT RETURNED TO ABOVE 90% AFTER AROUND 5 SECONDS EACH TIME. PT HAS A HX OF SLEEP APNEA AND REFUSED THE USE OF A CPAP WHILE AT HOSPITAL. PT ON 2L OF O2 WHILE ASLEEP. NO ACUTE EVENTS DURING SHIFT. VSS. PT LEFT IN A POSITION OF SAFETY WITH PROPER FALL PRECAUTIONS IN PLACE AND CALL LIGHT WITHIN REACH.
[2023-11-07 06:38] LABS: Albumin, Blood 1.9 g/dL (3.4-5.0); Anion Gap 6 mmol/L (6-16); Blood Urea Nitrogen 29 mg/dL (8-24); Bun/Creatinine Ratio 29.9 (12.0-20.0); CO2, Blood 23 mmol/L (21-32); Calcium, Blood 7.8 mg/dL (8.5-10.1); Chloride, Blood 112 mmol/L (98-108); Creatinine, Blood 0.97 mg/dL (0.60-1.20); Glomerular Filtration Rate 83 (60-); Glucose, Blood 212 mg/dL (70-99); Magnesium, Blood 2.1 mg/dL (1.6-2.4); Phosphorus, Blood 2.1 mg/dL (2.5-4.9); Sodium, Blood 141 mmol/L (136-145)
[2023-11-07 07:49] VITALS: BP 120/88
[2023-11-07 15:58] VITALS: BP 123/82
--- NOTE | 2023-11-07 17:16 | NUR ---
SHIFT SUMMARY PT RESTING QUIETLY AT START OF SHIFT. PT'S SON TO RM EARLY TO VISIT AND HAS REMAINED ALL DAY. PT UP WITH 1P ASSIST USING FWW AND GB. PT UP TO BSC AND TO CHAIR FOR MEALS. PT INCONTINENT OF BOWEL AND BLADDER AT START OF SHIFT. PT LATER UP TO BSC AND ABLE TO VOID. PT THEN INCONTINENT OF BOWEL AND BLADDER AGAIN AFTER TAKING A NAP. THERAPY IN TO WORK WITH PT, SANDRA LOZANO DONE THIS AM; SEE CHART. IV ABX GIVEN PER EMAR. NO C/O PAIN. EATING AND DRINKING WELL. PT ON RA SINCE PRIOR TO START OF SHIFT; BIOX @ 96% ON RA. SM AMT OF REDNESS TO BOTTOM D/T BOWEL INCONTINENCE. DENIES FURTHER NEEDS. CALL LT IN REACH. BED AND CHAIR ALARM USED FOR SAFETY.
[2023-11-07 20:26] VITALS: BP 125/87
[2023-11-08 03:31] VITALS: BP 166/102
[2023-11-08 03:32] VITALS: BP 142/82
--- NOTE | 2023-11-08 05:14 | NUR ---
SHIFT SUMMARY PT A&O TO SELF AND OCCASIONALY SITUATION AND PLACE. PT RECEIVED IV ANTIBIOTICS AND RESPONDED WELL TO INTERVENTION. PT VSS. NO ACUTE EVENTS OCCURED DURING SHIFT. PT LEFT IN A POSITION OF SAFETY WITH PROPER FALL PRECAUTIONS IN PLACE AND CALL LIGHT IN REACH.
[2023-11-08 06:11] LABS: BASOPHILS PERCENT AUTO 0 % (0-2); EOSINOPHILS PERCENT AUTO 0 % (0-6); Hematocrit 33.6 % (37.0-53.0); Hemoglobin 12.4 g/dL (13.5-17.5); IMMATURE GRAN ABSOLUTE AUTO 0.01 K/mm3 (0.00-0.10); IMMATURE GRAN PERCENT AUTO 0 % (0-1); LYMPHOCYTES ABSOLUTE AUTO 0.22 K/mm3 (0.84-5.20); LYMPHOCYTES PERCENT AUTO 4 % (21-46); MONOCYTES ABSOLUTE AUTO 0.21 K/mm3 (0.16-1.47); MONOCYTES PERCENT AUTO 4 % (4-13); Mean Corpuscular HGB 33.9 pg (26.0-34.0); Mean Corpuscular HGB Conc 36.9 g/dL (31.5-36.5); Mean Corpuscular Volume 92 fL (80-100); Mean Platelet Volume 12.1 fL (9.1-12.4); NEUTROPHILS ABSOLUTE AUTO 4.85 K/mm3 (1.96-9.15); NEUTROPHILS PERCENT AUTO 92 % (41-73); Platelet Count 114 K/mm3 (150-400); RDW Coefficient Variation 12.4 % (11.7-14.2); RDW Standard Deviation 42.5 fL (35.1-46.3); Red Blood Cell Count 3.66 M/mm3 (4.30-5.90); White Blood Cell Count 5.29 K/mm3 (4.00-11.30)
[2023-11-08 06:42] LABS: Albumin/Globulin Ratio 0.8 (0.8-1.8); Bilirubin, Total 0.5 mg/dL (0.1-1.0); Calcium, Blood 8.2 mg/dL (8.5-10.1); Globulin, Blood 2.6 g/dL (2.2-4.0); Total Protein, Blood 4.6 g/dL (6.4-8.2)
[2023-11-08 07:51] VITALS: BP 152/101
[2023-11-08 09:32] LABS: Vancomycin, Trough 18.2 ug/mL (5.0-10.0)
[2023-11-08 15:16] VITALS: BP 134/89
--- NOTE | 2023-11-08 18:33 | NUR ---
PATIENT A/O TO SELF AND FAMILY. PATIENT IS COVID POSITIVE, OCCASIONAL COUGH. MAINTAINING SATS TODAY ON RA. 2LO2 WHILE ASLEEP. PATIENT WILL HAVE A SLEEP STUDY TONIGHT. DENIES ANY PAIN OR DISCOMFORT. UP TO CHAIR FOR MEALS WITH STANDBY ASSIST. SKIN INTACT. POWERGLIDE TO SOLE WNL. FALL PRECAUTIONS IN PLACE. TOLERATING ADA DIET. CONTINENT/INCONTINENT OF URINE. ABLE TO USE URINAL WITH ASSIST. PLEASANT AND COOPERATIVE WITH CARE.
[2023-11-08 22:20] VITALS: BP 158/97
--- NOTE | 2023-11-09 02:15 | NUR ---
SHIFT SUMMERY, PT DOING SLEEP STUDY BUT SEEMS TO BE AWAKNIG FREQUENTLY. PT ASKED TO USE URINAL WHEN IN H9IS ROOM GIVENIN PT MEDS. PT HAD WET PULL UPS AND WET PAD. PT STOOD AT BED SIDE TO USE URIAL AND HAD A BM ON BED. PT IN CONT OF BM WHEN VOIDING.. LATTER PT CALLED PT VERY WET BED CHANGE DONE AND CLEAN LINENS PLACED ON BED. NEW GOWN PLACED ON PT. PT NOW TRYING TO GO BACK TO SLEEP .
[2023-11-09 05:46] VITALS: BP 144/95
[2023-11-09 06:57] LABS: BASOPHILS PERCENT AUTO 0 % (0-2); EOSINOPHILS PERCENT AUTO 0 % (0-6); Hematocrit 34.6 % (37.0-53.0); Hemoglobin 12.6 g/dL (13.5-17.5); IMMATURE GRAN ABSOLUTE AUTO 0.02 K/mm3 (0.00-0.10); IMMATURE GRAN PERCENT AUTO 0 % (0-1); LYMPHOCYTES ABSOLUTE AUTO 0.23 K/mm3 (0.84-5.20); LYMPHOCYTES PERCENT AUTO 5 % (21-46); MONOCYTES ABSOLUTE AUTO 0.22 K/mm3 (0.16-1.47); MONOCYTES PERCENT AUTO 5 % (4-13); Mean Corpuscular HGB 33.2 pg (26.0-34.0); Mean Corpuscular HGB Conc 36.4 g/dL (31.5-36.5); Mean Corpuscular Volume 91 fL (80-100); NEUTROPHILS ABSOLUTE AUTO 4.02 K/mm3 (1.96-9.15); NEUTROPHILS PERCENT AUTO 90 % (41-73); Platelet Count 106 K/mm3 (150-400); RDW Coefficient Variation 12.7 % (11.7-14.2); RDW Standard Deviation 42.1 fL (35.1-46.3); Red Blood Cell Count 3.79 M/mm3 (4.30-5.90); White Blood Cell Count 4.49 K/mm3 (4.00-11.30)
[2023-11-09 07:15] LABS: Bun/Creatinine Ratio 27.4 (12.0-20.0); Calcium, Blood 8.3 mg/dL (8.5-10.1); Creatinine, Blood 0.88 mg/dL (0.60-1.20); Potassium, Blood 4.4 mmol/L (3.5-5.5)
[2023-11-09 07:26] VITALS: BP 170/91
--- NOTE | 2023-11-09 15:43 | NUR ---
PATIENT D/C'D TO HOME WITH FAMILY. DC INSTRUCTIONS AND EDUCATION DISCUSSED WITH PATIENT AND COPY PROVIDED. PATIENT DENIES ANY FURTHER QUESTIONS OR CONCERNS. [facility] TO DELIVER HOME O2 AND FWW.
== END 2023-11-09 15:35 | disposition home health service (06) | DRG 871 ==
LOC: ER 17:28 → MEDS 17:29 → ICUE 11-04 05:02 → MEDS 11-05 16:37 → ENPENDDIS 11-09 11:46 → MEDS 11-09 15:35
PROVIDERS: Family Medicine; Internal Medicine; Nurse Practitioner Acute Care; Student in an Organized Health Care Education/Training Program; ADMIT Internal Medicine
PROC: 3E03329 Introduction of Other Anti-infective into Peripheral Vein, Percutaneous Approach (ICD-10-PCS; principal; 2023-11-04)
PROC: 0T9B70Z Drainage of Bladder with Drainage Device, Via Natural or Artificial Opening (ICD-10-PCS; 2023-11-04)
PROC: 4A033R1 Measurement of Arterial Saturation, Peripheral, Percutaneous Approach (ICD-10-PCS; 2023-11-04)
PROC: 3E033XZ Introduction of Vasopressor into Peripheral Vein, Percutaneous Approach (ICD-10-PCS; 2023-11-04)
PROC: XW033E5 Introduction of Remdesivir Anti-infective into Peripheral Vein, Percutaneous Approach, New Technology Group 5 (ICD-10-PCS; 2023-11-04)
DX: A41.89 Other specified sepsis (principal); G92.8 Other toxic encephalopathy; J12.82 Pneumonia due to coronavirus disease 2019; U07.1 COVID-19; J96.01 Acute respiratory failure with hypoxia; K85.90 Acute pancreatitis without necrosis or infection, unspecified; R57.9 Shock, unspecified; E87.3 Alkalosis; J98.11 Atelectasis; Z66 Do not resuscitate; F03.90 Unspecified dementia, unspecified severity, without behavioral disturbance, psychotic disturbance, mood disturbance, and anxiety; E87.6 Hypokalemia; E78.5 Hyperlipidemia, unspecified; G25.0 Essential tremor; K21.9 Gastro-esophageal reflux disease without esophagitis; I10 Essential (primary) hypertension; E11.42 Type 2 diabetes mellitus with diabetic polyneuropathy; G47.33 Obstructive sleep apnea (adult) (pediatric); F41.9 Anxiety disorder, unspecified; F32.A Depression, unspecified; E66.3 Overweight; N40.0 Benign prostatic hyperplasia without lower urinary tract symptoms; C88.0 Waldenstrom macroglobulinemia; G25.81 Restless legs syndrome; Z79.811 Long term (current) use of aromatase inhibitors; Z79.2 Long term (current) use of antibiotics; Z79.899 Other long term (current) drug therapy; Z98.890 Other specified postprocedural states; Z68.25 Body mass index [BMI] 25.0-25.9, adult
CPT/HCPCS: 0241U; 36415; 36600; 51701; 51702; 71045; 76705; 80048; 80053; 80069; 80202; 81001; 82803; 83605; 83690; 83735; 83880; 84100; 84443; 85025; 85027; 85379; 87040; 87086; 93005; 93010; 94760; 94761; 94762; 96361; 96365; 96366; 96367; 96368; 96372; 96375; 97110; 97129; 97130; 97161; 97165; 97530; 97535; 99285-25; A9270; C1751; G0378; J0248; J0692; J0696; J1650; J2930; J3370; J3475; J3480; J7030; J7050; J7060; J7120

== ENCOUNTER 2023-11-15 00:29 | Emergency (ER) | payer MEDICARE, BC ==
[~2023-11-15] VITALS: Ht 188 cm; Wt 79.4 kg
[~2023-11-15 00:29] MED LIST changes: +OLANZAPINE1024 PO; +[UNRECOGNIZED DRUG - CODE] PO
[2023-11-15 01:27] LABS: BASOPHILS ABSOLUTE AUTO 0.01 K/mm3 (0.00-0.23); BASOPHILS PERCENT AUTO 0 % (0-2); EOSINOPHILS ABSOLUTE AUTO 0.01 K/mm3 (0.00-0.68); EOSINOPHILS PERCENT AUTO 0 % (0-6); Hematocrit 40.9 % (37.0-53.0); Hemoglobin 14.8 g/dL (13.5-17.5); IMMATURE GRAN ABSOLUTE AUTO 0.03 K/mm3 (0.00-0.10); IMMATURE GRAN PERCENT AUTO 0 % (0-1); LYMPHOCYTES ABSOLUTE AUTO 0.33 K/mm3 (0.84-5.20); LYMPHOCYTES PERCENT AUTO 4 % (21-46); MONOCYTES ABSOLUTE AUTO 0.49 K/mm3 (0.16-1.47); MONOCYTES PERCENT AUTO 6 % (4-13); Mean Corpuscular HGB 33.6 pg (26.0-34.0); Mean Corpuscular HGB Conc 36.2 g/dL (31.5-36.5); Mean Corpuscular Volume 93 fL (80-100); NEUTROPHILS ABSOLUTE AUTO 6.89 K/mm3 (1.96-9.15); NEUTROPHILS PERCENT AUTO 89 % (41-73); Platelet Count 115 K/mm3 (150-400); RDW Coefficient Variation 12.1 % (11.7-14.2); RDW Standard Deviation 40.7 fL (35.1-46.3); Red Blood Cell Count 4.41 M/mm3 (4.30-5.90); White Blood Cell Count 7.76 K/mm3 (4.00-11.30)
[2023-11-15 01:37] LABS: Albumin, Blood 2.7 g/dL (3.4-5.0); Albumin/Globulin Ratio 0.8 (0.8-1.8); Bilirubin, Total 1.4 mg/dL (0.1-1.0); Bun/Creatinine Ratio 13.2 (12.0-20.0); Calcium, Blood 8.5 mg/dL (8.5-10.1); Creatinine, Blood 0.98 mg/dL (0.60-1.20); Globulin, Blood 3.5 g/dL (2.2-4.0); Potassium, Blood 3.8 mmol/L (3.5-5.5); Total Protein, Blood 6.2 g/dL (6.4-8.2)
[2023-11-15 02:33] LABS: Source, Urine Clean Catch
[2023-11-15 02:44] LABS: Bilirubin, Urine Neg (Neg); Blood, Urine 2+ (Neg); Glucose Qualitative, Urine Neg (Neg); Ketones, Urine 4+ (Neg); Leukocyte Esterase, Urine Neg (Neg); Nitrite, Urine Neg (Neg); Protein, Urine 2+ (Neg); Specific Gravity, Urine 1.015 (1.003-1.022); Urobilinogen, Urine 2+ (Normal)
[2023-11-15 02:56] LABS: Appearance, Urine Clear (Clear); Color, Urine Yellow (P-Yellow)
[2023-11-15 02:57] LABS: Amorphous Light (0-Heavy); Bacteria Few /hpf; Red Blood Cells, Urine 0-2 /hpf (0-2); Squamous Epithelial Cells Mod /hpf (Few); White Blood Cells, Urine 0-2 /hpf (0-5)
[2023-11-15 03:16] LABS: Thyroid Stimulating Hormone 1.65 uIU/mL (0.360-4.800)
[2023-11-15 07:43] VITALS: BP 128/81
== END 2023-11-15 14:55 | disposition home or self-care (01) ==
LOC: ER 00:29
PROVIDERS: Emergency Medicine
DX: E86.0 Dehydration (principal); Z73.89 Other problems related to life management difficulty; F03.90 Unspecified dementia, unspecified severity, without behavioral disturbance, psychotic disturbance, mood disturbance, and anxiety; G47.30 Sleep apnea, unspecified; E11.9 Type 2 diabetes mellitus without complications; G25.0 Essential tremor; C85.90 Non-Hodgkin lymphoma, unspecified, unspecified site; Z99.89 Dependence on other enabling machines and devices; Z79.899 Other long term (current) drug therapy
CPT/HCPCS: 51701; 71046; 80053; 81001; 84145; 84443; 84484; 85025; 93005; 93010; 96360; 99285-25; J7030